=== PATIENT | male | born 1960 | race Caucasian/White ===

== ENCOUNTER 2017-07-12 19:57 | Inpatient (IN) | payer MEDICARE, OTHER ==
[~2017-07-12] VITALS: Ht 172.7 cm; Wt 91.2 kg
[~2017-07-12 19:57] MED LIST: ALBU90OI; ALBU90OI61 INH; AMIT25 PO; AMIT50 PO; AMLO10 PO; AMLO5 PO; ASPI81CH PO; ATOR40TA PO; AZIT500 PO; Aluminum H320 MG/5 M PO; BUME2 PO; CALACE667G PO; CARV6.25 PO; CINA30 PO; CLON.1 PO; CODGUAEL PO; CYCL10 PO; Calcium Acetat667 MG PO; Cyclobenzaprine5 MG PO; DELTASONE20 MG PO; FLUSAL1005 INH; GABA100 PO; GUAIFENESIN-DM S5 ML PO; HYDMOR2 PO; HYDR10 PO; HYDRA25 PO; Klonopin0.5 MG PO; LISI20 PO; LISI5 PO; MEDICAL MARIJUANA; METO100ER PO; MOTION RELIEF25 MG PO; Meribin5 MG PO; Norco 10-325 T1 EACH PO; OMEPRAZOLE MAGN20 MG PO; ONDA4ODT SL; PANT40 PO; Percocet 5-3251 EACH PO; TIOT18 INH; TIZANIDINE HCL4 MG PO; VELPHORO500 MG PO; Zofran Odt4 MG PO
[2017-07-12 20:50] LABS: BASOPHILS ABSOLUTE AUTO 0.02 K/mm3 (0.00-0.23); BASOPHILS PERCENT AUTO 1 % (0-2); EOSINOPHILS ABSOLUTE AUTO 0.07 K/mm3 (0.00-0.68); EOSINOPHILS PERCENT AUTO 2 % (0-6); Hematocrit 28.5 % (37.0-53.0); Hemoglobin 9.4 g/dL (13.5-17.5); IMMATURE GRAN ABSOLUTE AUTO 0.01 K/mm3 (0.00-0.10); IMMATURE GRAN PERCENT AUTO 0 % (0-1); LYMPHOCYTES ABSOLUTE AUTO 0.92 K/mm3 (0.84-5.20); LYMPHOCYTES PERCENT AUTO 26 % (21-46); MONOCYTES ABSOLUTE AUTO 0.34 K/mm3 (0.16-1.47); MONOCYTES PERCENT AUTO 10 % (4-13); Mean Corpuscular HGB 31.4 pg (26.0-34.0); Mean Corpuscular Volume 95 fL (80-100); Mean Platelet Volume 10.5 fL (9.1-12.4); NEUTROPHILS ABSOLUTE AUTO 2.19 K/mm3 (1.96-9.15); NEUTROPHILS PERCENT AUTO 62 % (41-73); Platelet Count 89 K/mm3 (150-400); RDW Standard Deviation 52.2 fL (35.1-46.3); Red Blood Cell Count 2.99 M/mm3 (4.30-5.90); White Blood Cell Count 3.55 K/mm3 (4.00-11.30)
[2017-07-12 21:11] LABS: Troponin I 0.064 ng/mL (0.000-0.040)
[2017-07-12 21:16] LABS: Albumin, Blood 3.4 g/dL (3.4-5.0); Albumin/Globulin Ratio 1.1 (0.8-1.8); Bilirubin, Total 0.6 mg/dL (0.1-1.0); Bun/Creatinine Ratio 5.8 (12.0-20.0); Calcium, Blood 7.7 mg/dL (8.5-10.1); Globulin, Blood 3.1 g/dL (2.2-4.0); Potassium, Blood 4.6 mmol/L (3.5-5.5); Total Protein, Blood 6.5 g/dL (6.4-8.2)
[2017-07-12 21:51] LABS: Influenza A Negative (NEGATIVE); Influenza B Positive (NEGATIVE)
[2017-07-13 05:15] LABS: BASOPHILS ABSOLUTE AUTO 0.02 K/mm3 (0.00-0.23); BASOPHILS PERCENT AUTO 1 % (0-2); EOSINOPHILS ABSOLUTE AUTO 0.07 K/mm3 (0.00-0.68); EOSINOPHILS PERCENT AUTO 2 % (0-6); Hematocrit 27.3 % (37.0-53.0); Hemoglobin 8.9 g/dL (13.5-17.5); IMMATURE GRAN ABSOLUTE AUTO 0.01 K/mm3 (0.00-0.10); IMMATURE GRAN PERCENT AUTO 0 % (0-1); LYMPHOCYTES ABSOLUTE AUTO 1.13 K/mm3 (0.84-5.20); LYMPHOCYTES PERCENT AUTO 31 % (21-46); MONOCYTES ABSOLUTE AUTO 0.35 K/mm3 (0.16-1.47); MONOCYTES PERCENT AUTO 10 % (4-13); Mean Corpuscular HGB 31.2 pg (26.0-34.0); Mean Corpuscular HGB Conc 32.6 g/dL (31.5-36.5); Mean Corpuscular Volume 96 fL (80-100); Mean Platelet Volume 9.9 fL (9.1-12.4); NEUTROPHILS PERCENT AUTO 57 % (41-73); Platelet Count 80 K/mm3 (150-400); RDW Standard Deviation 52.4 fL (35.1-46.3); Red Blood Cell Count 2.85 M/mm3 (4.30-5.90); White Blood Cell Count 3.68 K/mm3 (4.00-11.30)
[2017-07-13 05:52] LABS: Albumin, Blood 3.3 g/dL (3.4-5.0); Anion Gap 11 mmol/L (6-16); Blood Urea Nitrogen 63 mg/dL (8-24); CO2, Blood 33 mmol/L (21-32); Calcium, Blood 7.6 mg/dL (8.5-10.1); Chloride, Blood 93 mmol/L (98-108); Glucose, Blood 93 mg/dL (70-99); Phosphorus, Blood 7.8 mg/dL (2.5-4.9); Potassium, Blood 4.5 mmol/L (3.5-5.5); Sodium, Blood 137 mmol/L (136-145)
[2017-07-13 05:57] LABS: Bun/Creatinine Ratio 5.9 (12.0-20.0); Glomerular Filtration Rate 5 (60-)
[2017-07-14 05:23] LABS: BASOPHILS PERCENT AUTO 0 % (0-2); EOSINOPHILS PERCENT AUTO 0 % (0-6); Hematocrit 27.2 % (37.0-53.0); IMMATURE GRAN PERCENT AUTO 0 % (0-1); LYMPHOCYTES ABSOLUTE AUTO 0.49 K/mm3 (0.84-5.20); LYMPHOCYTES PERCENT AUTO 24 % (21-46); MONOCYTES ABSOLUTE AUTO 0.15 K/mm3 (0.16-1.47); MONOCYTES PERCENT AUTO 7 % (4-13); Mean Corpuscular HGB Conc 33.1 g/dL (31.5-36.5); Mean Corpuscular Volume 94 fL (80-100); Mean Platelet Volume 9.8 fL (9.1-12.4); NEUTROPHILS ABSOLUTE AUTO 1.39 K/mm3 (1.96-9.15); NEUTROPHILS PERCENT AUTO 69 % (41-73); Platelet Count 86 K/mm3 (150-400); RDW Coefficient Variation 14.6 % (11.7-14.2); RDW Standard Deviation 50.1 fL (35.1-46.3); White Blood Cell Count 2.03 K/mm3 (4.00-11.30)
[2017-07-14 05:47] LABS: Magnesium, Blood 2.3 mg/dL (1.6-2.4)
[2017-07-14 06:00] LABS: Albumin, Blood 3.2 g/dL (3.4-5.0); Anion Gap 11 mmol/L (6-16); Blood Urea Nitrogen 63 mg/dL (8-24); CO2, Blood 30 mmol/L (21-32); Calcium, Blood 7.9 mg/dL (8.5-10.1); Chloride, Blood 95 mmol/L (98-108); Glucose, Blood 163 mg/dL (70-99); Phosphorus, Blood 6.6 mg/dL (2.5-4.9); Potassium, Blood 4.7 mmol/L (3.5-5.5); Sodium, Blood 136 mmol/L (136-145)
[2017-07-14 06:03] LABS: Bun/Creatinine Ratio 6.6 (12.0-20.0); Creatinine, Blood 9.59 mg/dL (0.60-1.20); Glomerular Filtration Rate 6 (60-)
[2017-07-14] MEDS ORDERED: ACET325 PO (12:17)
[2017-07-14] MEDS ORDERED: LEVFLO250 PO (12:18)
[2017-07-14] MEDS ORDERED: PRED10 PO (12:19)
[2017-07-14] MEDS ORDERED: OSEL75CA PO (12:32)
[2017-07-15 07:23] LABS: HCV Non Reactive (NR)
[2018-01-30] MEDS ORDERED: Calcium Acetat667 MG PO (07:27)
[2018-01-30] MEDS ORDERED: LOSA25 PO (07:27)
[2018-05-26] MEDS ORDERED: TUMS200 MG PO (14:53)
== END 2017-07-14 12:56 | disposition home or self-care (01) | DRG 193 ==
LOC: ER 19:57 → MEDS 21:40 → ENPENDDIS 07-14 09:30 → MEDS 07-14 12:56
PROVIDERS: Emergency Medicine; Internal Medicine; Internal Medicine Nephrology; Physician Assistant
PROC: 5A1D70Z Performance of Urinary Filtration, Intermittent, Less than 6 Hours Per Day (ICD-10-PCS; principal; 2017-07-13)
PROC: 3E0234Z Introduction of Serum, Toxoid and Vaccine into Muscle, Percutaneous Approach (ICD-10-PCS; 2017-07-13)
DX: J10.1 Influenza due to other identified influenza virus with other respiratory manifestations (principal); N18.6 End stage renal disease; I13.2 Hypertensive heart and chronic kidney disease with heart failure and with stage 5 chronic kidney disease, or end stage renal disease; J44.0 Chronic obstructive pulmonary disease with (acute) lower respiratory infection; J44.1 Chronic obstructive pulmonary disease with (acute) exacerbation; I50.42 Chronic combined systolic (congestive) and diastolic (congestive) heart failure; J20.9 Acute bronchitis, unspecified; Z23 Encounter for immunization
CPT/HCPCS: 36415; 71046; 80053; 80069; 80074; 82150; 82947; 83036; 83605; 83690; 83735; 84484; 85025; 86706; 87040; 87804; 93005; 93010; 94640; 94667; 94760; 96365; 96374; 96375; 99284; 99285; J0456; J0696; J0881; J1644; J2405; J2930; J7030; J7050

== ENCOUNTER → 2017-08-05 | Outpatient (CLI) | payer MEDICARE, OTHER ==
[~2017-08-05] MED LIST changes: +ACET325 PO; +LEVFLO250 PO; +LOSA25 PO; +OSEL75CA PO; +PRED10 PO; +TUMS200 MG PO
[2017-08-05 11:08] LABS: CHOL/HDL RATIO 2.3; Cholesterol 149 mg/dL (50-200); HDL Cholesterol 64 mg/dL (>39); LDL/HDL RATIO 1.1; Low Density Lipoprotein Chol 72 mg/dL (0-110); Triglycerides 63 mg/dL (30-160); Very Low Density Lipoprot Chol 12 mg/dL (6-32)
== END | disposition home or self-care (01) ==
LOC: LAB 10:25
PROVIDERS: Internal Medicine Nephrology
DX: E78.00 Pure hypercholesterolemia, unspecified (principal)
CPT/HCPCS: 80061

== ENCOUNTER 2018-07-18 21:35 | Emergency (ER) | payer MEDICARE, BC ==
[~2018-07-18] VITALS: Ht 172.7 cm; Wt 89.4 kg
[2018-07-18 22:09] LABS: BASOPHILS ABSOLUTE AUTO 0.08 K/mm3 (0.00-0.23); BASOPHILS PERCENT AUTO 2 % (0-2); EOSINOPHILS PERCENT AUTO 6 % (0-6); Hematocrit 28.2 % (37.0-53.0); Hemoglobin 9.3 g/dL (13.5-17.5); IMMATURE GRAN ABSOLUTE AUTO 0.01 K/mm3 (0.00-0.10); IMMATURE GRAN PERCENT AUTO 0 % (0-1); LYMPHOCYTES ABSOLUTE AUTO 1.42 K/mm3 (0.84-5.20); LYMPHOCYTES PERCENT AUTO 29 % (21-46); MONOCYTES ABSOLUTE AUTO 0.45 K/mm3 (0.16-1.47); MONOCYTES PERCENT AUTO 9 % (4-13); Mean Corpuscular HGB 32.1 pg (26.0-34.0); Mean Corpuscular Volume 97 fL (80-100); Mean Platelet Volume 9.3 fL (9.1-12.4); NEUTROPHILS ABSOLUTE AUTO 2.73 K/mm3 (1.96-9.15); NEUTROPHILS PERCENT AUTO 55 % (41-73); Platelet Count 111 K/mm3 (150-400); RDW Coefficient Variation 15.2 % (11.7-14.2); RDW Standard Deviation 53.6 fL (35.1-46.3); White Blood Cell Count 4.99 K/mm3 (4.00-11.30)
[2018-07-18 22:33] LABS: Troponin I 0.03 ng/mL (0.000-0.040)
[2018-07-18 22:34] LABS: Albumin, Blood 3.6 g/dL (3.4-5.0); Albumin/Globulin Ratio 1.1 (0.8-1.8); Bilirubin, Total 0.5 mg/dL (0.1-1.0); Bun/Creatinine Ratio 5.8 (12.0-20.0); Calcium, Blood 9.2 mg/dL (8.5-10.1); Creatinine, Blood 8.89 mg/dL (0.60-1.20); Globulin, Blood 3.3 g/dL (2.2-4.0); Potassium, Blood 4.9 mmol/L (3.5-5.5); Total Protein, Blood 6.9 g/dL (6.4-8.2)
== END 2018-07-18 23:50 | disposition home or self-care (01) ==
LOC: ER 21:35
PROVIDERS: Emergency Medicine
DX: J40 Bronchitis, not specified as acute or chronic (principal); R60.9 Edema, unspecified; R20.2 Paresthesia of skin; I10 Essential (primary) hypertension; Z79.899 Other long term (current) drug therapy; E11.22 Type 2 diabetes mellitus with diabetic chronic kidney disease; I12.9 Hypertensive chronic kidney disease with stage 1 through stage 4 chronic kidney disease, or unspecified chronic kidney disease; N18.9 Chronic kidney disease, unspecified; G43.909 Migraine, unspecified, not intractable, without status migrainosus
CPT/HCPCS: 36415; 71046; 80053; 83880; 84484; 85025; 93005; 93010; 94640; 96374; 99285-25

== ENCOUNTER 2018-10-07 11:00 | Emergency (ER) | payer MEDICARE, BC ==
[~2018-10-07] VITALS: Ht 172.7 cm; Wt 90.7 kg
[~2018-10-07 11:00] MED LIST changes: -CARV6.25 PO; +Carvedilol12.5 MG PO; -GABA100 PO; +GABA300 PO
[2018-10-07 11:33] LABS: BASOPHILS ABSOLUTE AUTO 0.03 K/mm3 (0.00-0.23); BASOPHILS PERCENT AUTO 1 % (0-2); EOSINOPHILS ABSOLUTE AUTO 0.02 K/mm3 (0.00-0.68); EOSINOPHILS PERCENT AUTO 1 % (0-6); Hematocrit 30.3 % (37.0-53.0); Hemoglobin 9.7 g/dL (13.5-17.5); IMMATURE GRAN ABSOLUTE AUTO 0.01 K/mm3 (0.00-0.10); IMMATURE GRAN PERCENT AUTO 0 % (0-1); LYMPHOCYTES PERCENT AUTO 19 % (21-46); MONOCYTES PERCENT AUTO 16 % (4-13); Mean Corpuscular HGB 31.9 pg (26.0-34.0); Mean Corpuscular Volume 100 fL (80-100); Mean Platelet Volume 10.3 fL (9.1-12.4); NEUTROPHILS ABSOLUTE AUTO 2.02 K/mm3 (1.96-9.15); NEUTROPHILS PERCENT AUTO 64 % (41-73); Platelet Count 68 K/mm3 (150-400); RDW Coefficient Variation 14.7 % (11.7-14.2); RDW Standard Deviation 53.8 fL (35.1-46.3); Red Blood Cell Count 3.04 M/mm3 (4.30-5.90); White Blood Cell Count 3.18 K/mm3 (4.00-11.30)
[2018-10-07 11:51] LABS: Albumin, Blood 3.6 g/dL (3.4-5.0); Albumin/Globulin Ratio 1.1 (0.8-1.8); Bilirubin, Total 0.8 mg/dL (0.1-1.0); Bun/Creatinine Ratio 4.9 (12.0-20.0); Calcium, Blood 9.7 mg/dL (8.5-10.1); Creatinine, Blood 7.33 mg/dL (0.60-1.20); Globulin, Blood 3.2 g/dL (2.2-4.0); Potassium, Blood 4.7 mmol/L (3.5-5.5); Total Protein, Blood 6.8 g/dL (6.4-8.2)
[2018-10-07 13:40] LABS: Influenza A Negative (NEGATIVE); Influenza B Negative (NEGATIVE)
[2018-10-07] MEDS ORDERED: Norco 5-325 Ta1 EACH PO (15:11)
[2018-10-07] MEDS ORDERED: BUDE6HFA INH (15:36)
[2018-10-07] MEDS ORDERED: ALBU90OI6 INH (15:37)
== END 2018-10-07 15:43 | disposition home or self-care (01) ==
LOC: ER 11:00
PROVIDERS: Physician Assistant
DX: B34.9 Viral infection, unspecified (principal); R79.89 Other specified abnormal findings of blood chemistry; Z88.8 Allergy status to other drugs, medicaments and biological substances; Z79.899 Other long term (current) drug therapy; E11.22 Type 2 diabetes mellitus with diabetic chronic kidney disease; I12.9 Hypertensive chronic kidney disease with stage 1 through stage 4 chronic kidney disease, or unspecified chronic kidney disease; N18.9 Chronic kidney disease, unspecified; G43.909 Migraine, unspecified, not intractable, without status migrainosus; J44.9 Chronic obstructive pulmonary disease, unspecified
CPT/HCPCS: 36415; 71046; 80053; 84484; 85025; 87804; 93005; 93010; 94640; 96374; 96375; 99285-25; J2405; J3010

== ENCOUNTER 2018-12-20 09:37 | Emergency (ER) | payer MEDICARE, BC ==
[~2018-12-20] VITALS: Ht 172.7 cm; Wt 92.5 kg
[~2018-12-20 09:37] MED LIST changes: +ALBU90OI6 INH; +BUDE6HFA INH; +Norco 5-325 Ta1 EACH PO
[2018-12-20 11:15] LABS: BASOPHILS ABSOLUTE AUTO 0.09 K/mm3 (0.00-0.23); BASOPHILS PERCENT AUTO 1 % (0-2); EOSINOPHILS ABSOLUTE AUTO 0.81 K/mm3 (0.00-0.68); EOSINOPHILS PERCENT AUTO 9 % (0-6); Hematocrit 31.7 % (37.0-53.0); Hemoglobin 10.2 g/dL (13.5-17.5); IMMATURE GRAN ABSOLUTE AUTO 0.03 K/mm3 (0.00-0.10); IMMATURE GRAN PERCENT AUTO 0 % (0-1); LYMPHOCYTES ABSOLUTE AUTO 0.97 K/mm3 (0.84-5.20); LYMPHOCYTES PERCENT AUTO 11 % (21-46); MONOCYTES PERCENT AUTO 7 % (4-13); Mean Corpuscular HGB 30.8 pg (26.0-34.0); Mean Corpuscular HGB Conc 32.2 g/dL (31.5-36.5); Mean Corpuscular Volume 96 fL (80-100); Mean Platelet Volume 10.4 fL (9.1-12.4); NEUTROPHILS PERCENT AUTO 73 % (41-73); Platelet Count 117 K/mm3 (150-400); RDW Coefficient Variation 15.1 % (11.7-14.2); RDW Standard Deviation 51.8 fL (35.1-46.3); Red Blood Cell Count 3.31 M/mm3 (4.30-5.90)
[2018-12-20 11:45] LABS: Troponin I 0.04 ng/mL (0.000-0.040)
[2018-12-20 11:50] LABS: Albumin, Blood 3.3 g/dL (3.4-5.0); Albumin/Globulin Ratio 0.9 (0.8-1.8); Bilirubin, Total 0.6 mg/dL (0.1-1.0); Creatinine, Blood 9.64 mg/dL (0.60-1.20); Globulin, Blood 3.6 g/dL (2.2-4.0); Potassium, Blood 4.1 mmol/L (3.5-5.5); Total Protein, Blood 6.9 g/dL (6.4-8.2)
[2019-03-17] MEDS ORDERED: AMIT25 PO (14:00)
[2019-03-17] MEDS ORDERED: CLOP75 PO (14:01)
[2019-03-17] MEDS ORDERED: HYDRA25 PO (14:01)
== END 2018-12-20 13:38 | disposition home or self-care (01) ==
LOC: ER 09:37
PROVIDERS: Physician Assistant
DX: L03.311 Cellulitis of abdominal wall (principal); Z91.048 Other nonmedicinal substance allergy status; Z79.899 Other long term (current) drug therapy; I12.9 Hypertensive chronic kidney disease with stage 1 through stage 4 chronic kidney disease, or unspecified chronic kidney disease; N18.9 Chronic kidney disease, unspecified; E11.22 Type 2 diabetes mellitus with diabetic chronic kidney disease; G43.909 Migraine, unspecified, not intractable, without status migrainosus; F17.290 Nicotine dependence, other tobacco product, uncomplicated
CPT/HCPCS: 36415; 80053; 83880; 84484; 85025; 93005; 93010; 96365; 96366; 99283-25; J3370; J7050

== ENCOUNTER 2018-12-30 00:25 | Day surgery (SDC) | payer MEDICARE, BC ==
[2019-03-17] MEDS ORDERED: AMIT25 PO (14:00)
[2019-03-17] MEDS ORDERED: CLOP75 PO (14:01)
[2019-03-17] MEDS ORDERED: HYDRA25 PO (14:01)
== END 2018-12-30 15:46 | disposition home or self-care (01) ==
LOC: ATC 00:25
DX: I12.0 Hypertensive chronic kidney disease with stage 5 chronic kidney disease or end stage renal disease (principal); E11.22 Type 2 diabetes mellitus with diabetic chronic kidney disease; N18.6 End stage renal disease; D63.1 Anemia in chronic kidney disease
CPT/HCPCS: 36415; 36430; 86850; 86900; 86901; 86923; J7050; P9016

== ENCOUNTER 2019-03-18 09:00 | Day surgery (SDC) | payer MEDICARE, BC ==
[~2019-03-18] VITALS: Ht 170.2 cm; Wt 95.0 kg
[~2019-03-18 09:00] MED LIST changes: +CLOP75 PO
--- NOTE | 2019-03-18 11:14 | NUR ---
Pt with dialysis catheter left arm with good bruit and trill. Pt sleeping off and on.
--- NOTE | 2019-03-18 15:12 | NUR ---
Pt received from Chaz Christie RN. Pt awake cooperative. Pt flat with right tr-band on not advanced. Right groin site wnl. Iv h.l. infused 100 ml from liaison inspection laboratory assistant. Pt in good spirits. vss, medications ordered and given. Report to Makeda MEYERS. Pt with back pain rx ordered awaiting medication.
--- NOTE | 2019-03-18 15:35 | NUR ---
PER DR ORDERS, PT GIVEN NORCO 5/325MG PO FOR BACK PAIN. TOLERATES WELL. VSS. PT EATING LUNCH AT THIS TIME. R FEM SITE REMAINS CLEAR.
--- NOTE | 2019-03-18 16:35 | NUR ---
ASSUMED CARE OF PT. PT REPORTS BACK DISCOMFORT 01/12, ACHEY IN CHARACTER WHICH IS CHRNOIC, RECEIVED 1 NORC0 5/325MG WITH NO RELIEF; ADMINISTEREED ADDITIONAL NORCO 5/325MG. PT DENIES SOB OR NAUSEA. MONITOR SR 60'S, B/P 174/75, SPO2 97% RA. R FEMORAL SITE, NO SWELLING/HEMATOMA, TEGADERM DRSG INTACT. PT HAS 2+ BLE PULSES BILATERALLY. R RADIAL ATTEMPT SITE, NO SWELLING/HEMATOMA, TR BAND IN PLACE-2 CC AIR REMOVED, SITE UNCHANGED. PT TAKING FOOD AND FLUIDS WITHOUT PROBLEM.
--- NOTE | 2019-03-18 17:15 | NUR ---
PT REPORTS GOOD RELIEF AFTER NORCO, BACK PAIN REDUCED TO 4/10. PT WAS SBA UP TO CHAIR, TOLERATED ACTIVITY WELL; SITE UNCHANGED AFTER ACTIVITY. DR FRAZIER HERE TO EVALUATE PT.
--- NOTE | 2019-03-18 17:55 | NUR ---
PT DRESSED SELF WITH MINIMAL ASSISTANCE. PT RECEIVED DISCHARGE INSTRUCTIONS, MED LIST AND SUPPLEMENTAL RESOURCES; VERBALIZED GOOD UNDERSTANDING. PT'S R RADIAL SITE WITHOUT SWELLING, TR BAND REMOVED, CLOTH DOT PLACED AND ARM BOARD. PT'S R GROING SITE REMAINS WITHOUT SWELLING/HEMATOMA, DRSG INTACT. PT'S IV REMOVED, CANNULA INTACT.
--- NOTE | 2019-03-18 18:06 | NUR ---
PT LEFT FACILITY VIA W/C WITH FRIEND, CONDTION STABLE.
[2019-03-20] MEDS ORDERED: Ropinirole HCl0.5 MG (11:37)
[2019-03-20] MEDS ORDERED: Monodox100 MG PO (11:55)
== END 2019-03-20 18:06 | disposition home or self-care (01) ==
LOC: MHTC 09:00
DX: E11.51 Type 2 diabetes mellitus with diabetic peripheral angiopathy without gangrene (principal); I70.213 Atherosclerosis of native arteries of extremities with intermittent claudication, bilateral legs; I12.0 Hypertensive chronic kidney disease with stage 5 chronic kidney disease or end stage renal disease; E11.22 Type 2 diabetes mellitus with diabetic chronic kidney disease; N18.6 End stage renal disease; I42.0 Dilated cardiomyopathy; J44.9 Chronic obstructive pulmonary disease, unspecified; Z99.2 Dependence on renal dialysis; Z86.73 Personal history of transient ischemic attack (TIA), and cerebral infarction without residual deficits; Z79.899 Other long term (current) drug therapy; Z79.02 Long term (current) use of antithrombotics/antiplatelets; Z88.5 Allergy status to narcotic agent
CPT/HCPCS: 36140; 36247; 75630; 75716; 75774; 76937; 99152; 99153; A9270-GY; C1769; C1887; C1894; J0360; J1644; J2250; J3010; J7030; Q9967

== ENCOUNTER 2019-03-20 11:16 | Emergency (ER) | payer MEDICARE, BC ==
[~2019-03-20] VITALS: Ht 170.2 cm; Wt 92.1 kg
[2019-03-20] MEDS ORDERED: Ropinirole HCl0.5 MG (11:37)
[2019-03-20] MEDS ORDERED: Monodox100 MG PO (11:55)
== END 2019-03-20 11:59 | disposition home or self-care (01) ==
LOC: ER 11:16
DX: L03.811 Cellulitis of head [any part, except face] (principal); I12.9 Hypertensive chronic kidney disease with stage 1 through stage 4 chronic kidney disease, or unspecified chronic kidney disease; E11.22 Type 2 diabetes mellitus with diabetic chronic kidney disease; N18.9 Chronic kidney disease, unspecified; J44.9 Chronic obstructive pulmonary disease, unspecified; G43.909 Migraine, unspecified, not intractable, without status migrainosus; Z88.5 Allergy status to narcotic agent; Z79.899 Other long term (current) drug therapy; Z79.02 Long term (current) use of antithrombotics/antiplatelets
CPT/HCPCS: 99281

== ENCOUNTER 2019-04-26 22:51 | Emergency (ER) | payer MEDICARE, BC ==
[~2019-04-26] VITALS: Ht 170.2 cm; Wt 95.7 kg
[~2019-04-26 22:51] MED LIST changes: +Monodox100 MG PO; +Ropinirole HCl0.5 MG
== END 2019-04-26 23:46 | disposition home or self-care (01) ==
LOC: ER 22:51
DX: L76.22 Postprocedural hemorrhage of skin and subcutaneous tissue following other procedure (principal); Z88.5 Allergy status to narcotic agent; Z79.899 Other long term (current) drug therapy; E11.22 Type 2 diabetes mellitus with diabetic chronic kidney disease; I12.9 Hypertensive chronic kidney disease with stage 1 through stage 4 chronic kidney disease, or unspecified chronic kidney disease; N18.9 Chronic kidney disease, unspecified; G43.909 Migraine, unspecified, not intractable, without status migrainosus; F17.290 Nicotine dependence, other tobacco product, uncomplicated
CPT/HCPCS: 12011; 99283-25

== ENCOUNTER 2019-05-04 12:48 | Emergency (ER) | payer MEDICARE, BC ==
[~2019-05-04] VITALS: Ht 170.2 cm; Wt 93.4 kg
== END 2019-05-04 14:35 | disposition home or self-care (01) ==
LOC: ER 12:48
DX: L02.212 Cutaneous abscess of back [any part, except buttock and flank] (principal); Z88.5 Allergy status to narcotic agent; Z79.899 Other long term (current) drug therapy; E11.22 Type 2 diabetes mellitus with diabetic chronic kidney disease; I12.9 Hypertensive chronic kidney disease with stage 1 through stage 4 chronic kidney disease, or unspecified chronic kidney disease; N18.9 Chronic kidney disease, unspecified; G43.909 Migraine, unspecified, not intractable, without status migrainosus; J44.9 Chronic obstructive pulmonary disease, unspecified
CPT/HCPCS: 10061; 99283-25

== ENCOUNTER 2019-05-22 08:56 | Inpatient (IN) | payer MEDICARE, BC ==
[~2019-05-22] VITALS: Ht 172.7 cm; Wt 95.5 kg
[~2019-05-22 08:56] MED LIST changes: -Ropinirole HCl0.5 MG; +Ropinirole HCl0.5 MG PO
[2019-05-22 09:53] LABS: BASOPHILS ABSOLUTE AUTO 0.17 K/mm3 (0.00-0.23); BASOPHILS PERCENT AUTO 2 % (0-2); EOSINOPHILS ABSOLUTE AUTO 0.38 K/mm3 (0.00-0.68); EOSINOPHILS PERCENT AUTO 4 % (0-6); Hematocrit 22.4 % (37.0-53.0); Hemoglobin 7.1 g/dL (13.5-17.5); IMMATURE GRAN ABSOLUTE AUTO 0.04 K/mm3 (0.00-0.10); IMMATURE GRAN PERCENT AUTO 0 % (0-1); LYMPHOCYTES ABSOLUTE AUTO 1.54 K/mm3 (0.84-5.20); LYMPHOCYTES PERCENT AUTO 17 % (21-46); MONOCYTES ABSOLUTE AUTO 0.41 K/mm3 (0.16-1.47); MONOCYTES PERCENT AUTO 5 % (4-13); Mean Corpuscular HGB 31.3 pg (26.0-34.0); Mean Corpuscular HGB Conc 31.7 g/dL (31.5-36.5); Mean Corpuscular Volume 99 fL (80-100); Mean Platelet Volume 10.3 fL (9.1-12.4); NEUTROPHILS ABSOLUTE AUTO 6.43 K/mm3 (1.96-9.15); NEUTROPHILS PERCENT AUTO 72 % (41-73); Platelet Count 145 K/mm3 (150-400); RDW Coefficient Variation 15.9 % (11.7-14.2); RDW Standard Deviation 55.7 fL (35.1-46.3); Red Blood Cell Count 2.27 M/mm3 (4.30-5.90); White Blood Cell Count 8.97 K/mm3 (4.00-11.30)
[2019-05-22 10:06] LABS: International Normalized Ratio 1.19; Prothrombin Time Results 12.4 Sec (9.7-11.5)
[2019-05-22 10:09] LABS: Albumin, Blood 2.5 g/dL (3.4-5.0); Albumin/Globulin Ratio 0.9 (0.8-1.8); Bilirubin, Total 0.5 mg/dL (0.1-1.0); Bun/Creatinine Ratio 6.8 (12.0-20.0); Calcium, Blood 8.6 mg/dL (8.5-10.1); Creatinine, Blood 7.52 mg/dL (0.60-1.20); Globulin, Blood 2.7 g/dL (2.2-4.0); Potassium, Blood 5.6 mmol/L (3.5-5.5); Total Protein, Blood 5.2 g/dL (6.4-8.2)
[2019-05-22] MEDS ORDERED: HYDRA25 PO (10:13)
[2019-05-22] MEDS ORDERED: BUDE6HFA INH (10:17)
[2019-05-22] MEDS ORDERED: Ventolin/Prove6.7 GM INH (10:18)
[2019-05-22] MEDS ORDERED: FERRIC CITRATE210 MG PO (12:36)
[2019-05-22] MEDS ORDERED: HYDHCL25 PO (12:39)
--- NOTE | 2019-05-22 13:14 | NUR ---
PT AND DAUGHTER ORIENTED TO ROOM AND EXPLAINED FREQUENT ROUNDING. BED LOW AND IN LOCKED POSITION CALL LIGHT WITHIN REACH. PT AWAKE ALERT WITH C/O POSSIBLE INGROWN RIGHT GREAT TOENAIL. ASSISTED TO HOSPITAL BED WITH 3 PEOPLE FROM ER STRETCHER.
[2019-05-22 15:44] LABS: Hematocrit 21.1 % (37.0-53.0); Hemoglobin 7.1 g/dL (13.5-17.5)
--- NOTE | 2019-05-22 15:50 | NUR ---
SEVERAL EPISODES OF DARK RED BLOOD FROM RECTUM DURING DIALYSIS REPORTED TO DR. BAUER. PCU TRANSFER ORDERS AND OTHER NEW ORDERS RECEIVED.
--- NOTE | 2019-05-22 16:08 | NUR ---
PT WITH SEVERAL EPISODES OF DARK RED BLOOD FROM RECTUM IN LARGE AMOUNTS REPORTED TO DR. DELCID. PREPARING PT FOR PCU TRANSFER.
--- NOTE | 2019-05-22 16:17 | NUR ---
TRANSFER OF CARE GIVEN TO PCU,RN. WILMA Julien AND GÉNESIS Durant TRANSFERRING PT VIA HOSPITAL BED AT THIS TIME ACCOMPANIED BY NICOLASA Julien
--- NOTE | 2019-05-22 16:33 | NUR ---
REPORT RECEIVED FROM BRANDEN, YVES. DR DELCID MET PT IN [facility] AND RECOMMENDS ICU TRANSFER. REPORT GIVEN TO JORGE RNS. MED NURSE'S NAME GIVEN FOR FURTHER INFO.
--- NOTE | 2019-05-22 17:48 | NUR ---
CARE ASSUMED AT 1640, PT TO ICU 10, ALERT AND ORIENTED X4, APPROPRIATE AND COOPERATIVE. SKIN PALE AND COOL, BP WNL AT THIS TIME, HR 70'S SINUS WITH ST DEPRESSION NOTED. ASSESSMENT COMPLETED, PT DENIES CP/PRESSURE, DENIES ABD DISCOMFORT. DIALYSIS NURSE AT BEDSIDE, 1 UNIT PRBC'S INFUSED BY MEDICAID BILLING SPECIALIST WITHOUT DIFFUCULTY, VSS T/O. TAP WATER ENEMA X1 WITH SMALL RESULT OF JEFFRY LIQUID OTUPUT. CATHERINE DELCID AND ELAYNE AT BEDSIDE FOR SCOPE, MARKED ST DEPRESSION NOW NOTED ON MINUTE CLERK, EKG OBTAINED. DR. ALVAREZ CONSULTED BY DR. DELCID, DR. DELCID ALSO SPOKE WITH DR. BAUER FOR UPDATE. PT NOW REPORTING INTERMITTENT RIGHT SIDED CHEST PAIN, DENIES CP AT THIS TIME, STATES SOB IS MINIMAL AND AT BASELINE. MAP > 60, HR 70'S, WILL CONTINUE TO MONITOR.
--- NOTE | 2019-05-22 18:07 | NUR ---
DIALYSIS TOOK MY MACHINE UP TO ROOM 363 AND CONNECTED PT TO DIALYSIS AT 1457. HE C/O NEEDING TO GO TO THE . AMORTIZATION SCHEDULE CLERK AND I PLACED A BEDPAN UNDER HIM. HE HAD APPROX. 600ML OF MAROON COLORED BLOOD. WHEN WE REMOVED IT HE SAID HE WAS GOING AGAIN. A CHUX WAS SCOOTED UNDER HIM. WHEN WE TRIED TO REMOVE THE CHUX HE STARTED GOING AGAIN. WE USED 3-5 CHUXS. APPROX. 2-3 LITER, THE FLOOR RN CALLED THE DR ABOUT MOVING HIM TO ICU AND GETTING A SCOPE DONE. THE PT BP DROPPED TO 60 WHEN I FIRST CONNECTED HIM,I TOOK AGAIN GOT 80. WE GAVE 1 LITER OF NS. THE FLOOR NURSE WAS GIVING A UNIT OF BLOOD. I RETURNED HIS BLOOD AND SECURED THE NEEDLES. HE WAS MOVED TO ICU WHERE I RECONNECTED HIM AND GAVE HIM A UNIT OF PRBC. THEN DC'ED THE TX. THE STAFF WAS THERE TO DO A SCOPE. REMOVED NEEDLES PER PROTOCAL. PRBC. THEN DC'ED TX AND
--- NOTE | 2019-05-22 18:25 | NUR ---
05/22/19 182 Antonieta De Paz MAC CASE IN ICU [address] HOLLY. SEE ANETHESIA RECORD FOR CARE
[2019-05-22 18:40] LABS: Hematocrit 25.4 % (37.0-53.0); Hemoglobin 8.4 g/dL (13.5-17.5)
--- NOTE | 2019-05-22 18:40 | NUR ---
PT CONSULTED BY DR. ALVAREZ, NEW ORDERS RECEIVED. EGD CREW AT BEDSIDE FOR LOWER ENDOSCOPY AT THIS TIME. PT HYPOTENSIVE, MAP 79 HR 80. REPORT TO ONCOMING SHIFT.
[2019-05-22 19:56] LABS: Hematocrit 24.2 % (37.0-53.0)
--- NOTE | 2019-05-22 21:47 | NUR ---
ASSUMED CARE OF PT, REPORT RCV'D FROM LUIGI LONGORIA. DR. DELCID AT BEDSIDE, COLONOSCOPY PERFORMED. PER DR. DELCID NO SIGN OF ACTIVE BLEEDING, WILL SCOPE TOMORROW AFTERNOON FOLLOWING PREP. PT AND FAMILY UPDATED. PT DROWSY BUT AROUSABLE. PT DENIES CHEST OR ABDOMINAL PAIN, REPORTS 5/10 PAIN IN LEFT BIG TOE D/T INGROWN TOENAIL-PODIATRY CONSULTED. PT REPORTS SOB AT BASELINE BUT CURRENLTLY DENIES. SATS MID 90'S ON RA. NS @ 50ML/HR INFUSING IN RAC. SEE FULL SHIFT ASSESSMENT.
--- NOTE | 2019-05-22 23:52 | NUR ---
DR. FUENTES AT BEDSIDE, UPDATED ON PT STATUS. PLAN FOR DIALYSIS TOMORROW.
[2019-05-23 02:09] LABS: BASOPHILS ABSOLUTE AUTO 0.15 K/mm3 (0.00-0.23); BASOPHILS PERCENT AUTO 2 % (0-2); EOSINOPHILS ABSOLUTE AUTO 0.32 K/mm3 (0.00-0.68); EOSINOPHILS PERCENT AUTO 4 % (0-6); Hematocrit 21.4 % (37.0-53.0); IMMATURE GRAN ABSOLUTE AUTO 0.03 K/mm3 (0.00-0.10); IMMATURE GRAN PERCENT AUTO 0 % (0-1); LYMPHOCYTES ABSOLUTE AUTO 1.96 K/mm3 (0.84-5.20); LYMPHOCYTES PERCENT AUTO 24 % (21-46); MONOCYTES PERCENT AUTO 7 % (4-13); Mean Corpuscular HGB 30.6 pg (26.0-34.0); Mean Corpuscular HGB Conc 32.7 g/dL (31.5-36.5); Mean Platelet Volume 9.8 fL (9.1-12.4); NEUTROPHILS ABSOLUTE AUTO 5.26 K/mm3 (1.96-9.15); NEUTROPHILS PERCENT AUTO 63 % (41-73); Platelet Count 101 K/mm3 (150-400); RDW Coefficient Variation 17.9 % (11.7-14.2); RDW Standard Deviation 58.2 fL (35.1-46.3); Red Blood Cell Count 2.29 M/mm3 (4.30-5.90); White Blood Cell Count 8.32 K/mm3 (4.00-11.30)
[2019-05-23 02:13] LABS: Mean Corpuscular Volume 93 fL (80-100)
[2019-05-23 02:27] LABS: Anion Gap 5 mmol/L (6-16); Blood Urea Nitrogen 50 mg/dL (8-24); Bun/Creatinine Ratio 7.7 (12.0-20.0); CO2, Blood 34 mmol/L (21-32); Calcium, Blood 7.6 mg/dL (8.5-10.1); Chloride, Blood 100 mmol/L (98-108); Creatinine, Blood 6.48 mg/dL (0.60-1.20); Glomerular Filtration Rate 9 (60-); Glucose, Blood 127 mg/dL (70-99); Magnesium, Blood 1.7 mg/dL (1.6-2.4); Phosphorus, Blood 5.6 mg/dL (2.5-4.9); Potassium, Blood 4.3 mmol/L (3.5-5.5); Sodium, Blood 139 mmol/L (136-145)
--- NOTE | 2019-05-23 06:09 | NUR ---
SHIFT SUMMARY NO ACUTE CHANGES OVERNIGHT. PT WAS ABLE TO AMBULATE FROM BED TO CHAIR AND BACK TO BED WITH ASSISTANCE. PT CONTINUES TO DENY ABDOMEN OR CHEST PAIN AT THIS TIME, PT'S ONLY COMPLAINT OF PAIN IS RIGHT BIG TOE. PT DID NOT HAVE ANY INCIDENCE OF BLOODY STOOL THIS SHIFT. HGB 7.0 THIS AM, TRANSFUSED 1 UNIT PRBC PER ORDER. PT EXPERIENCED OCCASIONAL BOUTS OF HYPOTENSION. PT TO BEGIN BOWEL PREP THIS MORNING, WILL CALL DEPUTY SHERIFF K9 HANDLER TO ENCOURAGE EARLY ECHO PRIOR TO BOWEL PREP. WILL REPORT TO DAYSHIFT NURSE.
[2019-05-23 08:23] LABS: Hematocrit 22.5 % (37.0-53.0); Hemoglobin 7.4 g/dL (13.5-17.5)
--- NOTE | 2019-05-23 09:03 | NUR ---
Echocardiogram completed
--- NOTE | 2019-05-23 09:59 | NUR ---
Patient gave permission for this student nurse to deliver care.
--- NOTE | 2019-05-23 10:04 | NUR ---
0830 PT BEGAN SMALL KATHY STOOL DOLLAR SIZE TIMES 2 AND THEN HAD LARGER STOOL OF 50ML. VSS AND AM MEDS HELD NOTED. PT DENIES PAIN OR DISTRESS OTHER THAN STOOLING ISSUES. NS AT 50ML INFUSING VIA R AC AND WILL D/C R HAND IV. P.G. IV PLACED FOR SECURE ACCESS NOTE AT THIS TIME.
--- NOTE | 2019-05-23 10:40 | NUR ---
PT CONT. TO FREQUENTLY TOOL KATHY STOOL WITH CLOTS. BP SL LOW AND WILL OBTAIN PRBC ORDERED. PT IS YET ASYMTOMATIC AND WILL FOLLOW.
--- NOTE | 2019-05-23 11:52 | NUR ---
PT JUST REMOVED FROM BED DIXON AND NO STOOLING NOTED AT THIS TIME. VS NOTED WITH PRBC INFUSING AND PT CONT WITH GOLYTELY AND NEARING 2000ML GOAL AND DOSE. WILL CONT TO FOLLOW.
--- NOTE | 2019-05-23 14:03 | NUR ---
PER DR BURT REQUEST... PT WILL FINISH ALL OF GOLYTELY.
[2019-05-23 15:33] LABS: Hematocrit 21.2 % (37.0-53.0); Hemoglobin 7.1 g/dL (13.5-17.5)
--- NOTE | 2019-05-23 15:51 | NUR ---
05/23/19 1551 POONAM MEDELLIN History, Chart, Medications and Allergies reviewed before start of procedure.MONITOR INTACT WITH CONTINUOUS PULSE OXIMETRY AND INTERMITTENT BP.3-LEAD EKG REVIEWED WITH PHYSICIAN PRIOR TO START OF PROCEDURE.O2 VIA N/C INTACT THROUGHOUT SEDATION/PROCEDURE. See Anesthesia record.
--- NOTE | 2019-05-23 18:01 | NUR ---
DIALYSIS TALKED TO DR FUENTES ABOUT PROCEDURE WITH CONTRAST BEING DONE TONIGHT. HE SAID THAT THE PT COULD WAIT UNTIL TOMORROW TO GET DIALYSIS.
--- NOTE | 2019-05-23 18:27 | NUR ---
1700 COLONOSCOPY COMPLETED AND PT BP SL SOFT NOTED. DR JIMENEZ REQUESTED AND DR DELCID ORDERED CTA TO FOLLOW. PT RESP STATUS STABLE WITH SECOND UNIT INFUSING AND H/H ORDERED TO FOLLOW AND CALL TO DR DELCID. PT IS C/O NUMBNESS OF LOWER EXTREMETIES AND FEELING BETTER WITH MOVEMENT AND ARE NOTED TO BE COOL. VS ARE INCREASING OVER TIME WITH RECOVERY.
--- NOTE | 2019-05-23 18:34 | NUR ---
[address] VIA BED AND BP ADIQUATE AND NOTED. BLOOD CONT TO INFUSE AND WILL F/U WITH H/H ORDERED. PT IS A/O AND SETTING UP IN BED W/O SOB OR DISTRESS. PT CONT TO NOTE NUMBNESS OF FEET. NS CONT AT 50ML AND BLOOD IN INFUSING AND WILL FOLLOW.
--- NOTE | 2019-05-23 18:39 | NUR ---
PT BP IS GOOD NOTED. PT RESTING AND REQUESTING HOB ELEVATED FOR COMFORT. PT DENIES ANY PAIN OR OTHER DISTRESS. DR JIMENEZ IS EXPECTED LATED THIS EVENING WITH F/U TO CTA THAT WAS DONE. ONE UNIT READY SLIP REMAINS AVALIBLE.
[2019-05-23 19:37] LABS: Hematocrit 23.2 % (37.0-53.0); Hemoglobin 7.5 g/dL (13.5-17.5)
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
[2019-05-24 00:04] LABS: Hematocrit 18.7 % (37.0-53.0); Hemoglobin 6.2 g/dL (13.5-17.5)
[2019-05-24 03:21] LABS: Hemoglobin 6.9 g/dL (13.5-17.5)
[2019-05-24 03:36] LABS: Magnesium, Blood 1.7 mg/dL (1.6-2.4)
[2019-05-24 03:37] LABS: Albumin, Blood 1.8 g/dL (3.4-5.0); Anion Gap 8 mmol/L (6-16); Blood Urea Nitrogen 58 mg/dL (8-24); Bun/Creatinine Ratio 7.5 (12.0-20.0); CO2, Blood 28 mmol/L (21-32); Calcium, Blood 7.2 mg/dL (8.5-10.1); Chloride, Blood 103 mmol/L (98-108); Creatinine, Blood 7.73 mg/dL (0.60-1.20); Glomerular Filtration Rate 8 (60-); Glucose, Blood 120 mg/dL (70-99); Phosphorus, Blood 6.8 mg/dL (2.5-4.9); Potassium, Blood 5.2 mmol/L (3.5-5.5); Sodium, Blood 139 mmol/L (136-145)
--- NOTE | 2019-05-24 03:39 | NUR ---
PT PRIMARY RN CONCERNED THAT PT HAD BECOME HYPOTENSIVE, SBP 80'S & MAP 40'S. PT ALSO NAUSEATED & CO CHEST PRESSURE "I JUST DON'T FEEL WELL". PT HAD REC'D 1 UNIT PRBC FOR HGB 6.2, WITH IMPROVEMENT TO 6.9. TROPONIN ALSO CONT TO INCREASE & EKG W WORSENING ST DEPRESSIONS. PT STATUS REVIEWED W DR NINO WHO CONFIRMS PLAN TO TRANSFUSE 1 UNIT PRBC. NO OTHER ORDERS AT THIS TIME.
[2019-05-24 06:26] LABS: Hematocrit 23.4 % (37.0-53.0); Hemoglobin 7.8 g/dL (13.5-17.5)
--- NOTE | 2019-05-24 06:29 | NUR ---
SHIFT SUMMARY PT CONTINUES TO HAVE INTERMITTENT HYPOTENSION. SECOND UNIT OF PRBC INFUSION COMPLETED AT 0545, FOLLOW UP H/H SENT TO LAB PENDING RESULTS. PT HAD ONE EPISODE "HEAVY" RIGHT UPPER CHEST PAIN THAT PT ATTRIBUTED TO NAUSEA. NO VOMITING OR BLOODY STOOL THIS SHIFT. PT'S TROPONINS TRENDING UPWARD, MOST RECENT 2.42-REPAIRER HANDTOOLS AWARE. WORSENING ST DEPRESSION NOTICED, EKG PERFORMED. DR. NINO NOTIFIED OF HYPOTENSION, CHEST PAIN AND NAUSEA-ORDER TO CONTINUE MONITORING H/H AND TRANSFUSING PER DR. DELCID'S PARAMETERS PT IS NOT CANDIDATE FOR CARDIAC INTERVENTION AT THIS TIME. PLEASE SEE PREVIOUS NOTES FROM THIS SHIFT, WILL REPORT TO DAYSHIFT NURSE.
--- NOTE | 2019-05-24 08:01 | NUR ---
ASSESSMENT- PT AWAKE, ALERT, COOPERATIVE, TALKATIVE. VOICING ANXIETY REGARDING HEALTH, EMOTIONAL SUPPORT GIVEN. NSR WITH ST DEPRESSION-DR. ALVAREZ HERE-ASSESSED EKG, UPDATED. LUNGS WITH FEW WHEEZES, STATES BREATHING "OKAY" NOW. SBP 90'S. COLOR PALE, SKIN W/D. NS TKO VIA POWER GLIDE AFSHAN, PROTONIX GTT AT 10 CC/HR. NO N/V. ABDOMEN SOFT WITH BOWEL SOUNDS. C/O DISCOMFORT RIGHT GREAT TOE, NO REDNESS. STATES PAIN RX LAST NIGHT DID HELP, DENIES NEED FOR PAIN RX NOW. CALLED DR. FUENTES-ORDERS TO RECEIVE ONE UNIT PC NOW AND ONE WITH DIALYSIS AT 1300 TODAY.
--- NOTE | 2019-05-24 08:59 | NUR ---
DR. BAUER, DR. JIMENEZ HERE. PLANS THAT IF PT ACTIVELY BLEEDING TO TAKE TO SPECIALS PROCEDURE. CONSENT SIGNED. VSS. BLOOD INFUSING NO S/S REACTION.
--- NOTE | 2019-05-24 10:07 | NUR ---
PT UNCOMFORTABLE, RESTLESS IN BED. BLOOD INFUSION DECREASED TO 125 CC/HR, ASSISTED TO REPOSITION AND PAIN RX GIVEN
--- NOTE | 2019-05-24 12:00 | NUR ---
BLOOD INFUSED WITHOUT ANY S/S REACTION. SBP REMAINS 90-100'S. HEARTRATE 80'S. UNCOMFORTABLE IN BED, ASSISTED FREQUENTLY TO REPOSITION. NPO. STATES DID HAVE SOME SOB BUT RESOLVED AFTER PAIN RX
--- NOTE | 2019-05-24 13:46 | NUR ---
DIALYSIS STARTED BY LITZY MEYERS. 2ND UNIT BLOOD CHECKED/VERIFIED. PT AWAKE, ALERT.
--- NOTE | 2019-05-24 15:18 | NUR ---
DIALYSIS CONTINUES. PT AWAKE, ALERT. STATES HARD TO REST IN BED. VSS. SECOND UNIT BLOOD TRANSFUSED. PLAN FOR SCOPE AFTER DIALYSIS.
[2019-05-24 15:51] LABS: Hematocrit 32.9 % (37.0-53.0); Hemoglobin 11.4 g/dL (13.5-17.5)
--- NOTE | 2019-05-24 15:58 | NUR ---
05/24/19 1558 Toby Holbrook History, Chart, Medications and Allergies reviewed before start of procedure.Patient confirms NPO status and agrees with scheduled PROCEDURE .Procedure Done in Patient Room MONITOR INTACT WITH CONTINUOUS PULSE OXIMETRY AND INTERMITTENT BP. 3-LEAD EKG REVIEWED WITH PHYSICIAN PRIOR TO START OF PROCEDURE. Bite Block Placed
--- NOTE | 2019-05-24 16:09 | NUR ---
DIALYSIS COMPLETE. PT AWAKE, ALERT. PREPARING FOR ENDOSCOPE. DR. DELCID HERE-UPDATED
--- NOTE | 2019-05-24 16:50 | NUR ---
GASTROSCOPY DONE WITH ANESTHESIA. PHYSICIANS AWARE OF UPDATED LABS. DUODENAL ULCER CLIPPED. PT AWAKE NOW, STATES FEELING BETTER, TALKING ON PHONE. NSR, BP IMPROVED. CONTINUE PROTONIX GTT FOR [address] DELCID. RIGHT AC AND AFSHAN MIDLINE DI.
--- NOTE | 2019-05-24 17:54 | NUR ---
NOTIFIED DR. JIMENEZ OF EGD WITH CLIPPED DUODENAL ULCER. ORDERS TO CALL IF PT REBLEEDS. PT STABLE NOW, NO S/S BLEEDING, BP IMPROVED, TAKING SMALL SIPS CLEAR LIQUIDS. NS TKO, PROTONIX GTT AT 10 CC/HR
--- NOTE | 2019-05-24 18:56 | NUR ---
VSS. CONTINUE TO MONITOR. STATES FEELS BETTER AFTER PAIN RX
--- NOTE | 2019-05-24 20:28 | NUR ---
INITIAL ASSESSMENT: PT A&O. IS ABLE TO MOVE SELF IN BED HOWEVER IS A 1XASSIST. LUNG SOUNDS ARE WHEEZY IN UPPER AND DIM IN BASES. SPO2 >90% ON RA. IN SR WITH ST DEPRESSION, HR IN THE 80S, SBP IN THE 120S. PITTING EDEMA BLE. PT REPORTS HE HAS NOT VOIDED SINCE YESTERDAY AND LAST BM 05/23. BT HYPOACTIVE. PT HAS A L ARM FISTULA AND 18G IV IN RAC AND POWERGLIDE AFSHAN. NS AND PROTONIX AT 10 MLS/HR.
[2019-05-25 02:43] LABS: Hematocrit 30.4 % (37.0-53.0); Hemoglobin 10.1 g/dL (13.5-17.5)
[2019-05-25 02:59] LABS: Magnesium, Blood 1.6 mg/dL (1.6-2.4)
[2019-05-25 03:00] LABS: Albumin, Blood 2.2 g/dL (3.4-5.0); Albumin/Globulin Ratio 0.9 (0.8-1.8); Bilirubin, Total 0.6 mg/dL (0.1-1.0); Bun/Creatinine Ratio 5.9 (12.0-20.0); Calcium, Blood 7.5 mg/dL (8.5-10.1); Creatinine, Blood 6.62 mg/dL (0.60-1.20); Globulin, Blood 2.5 g/dL (2.2-4.0); Phosphorus, Blood 5.8 mg/dL (2.5-4.9); Potassium, Blood 4.6 mmol/L (3.5-5.5); Total Protein, Blood 4.7 g/dL (6.4-8.2)
--- NOTE | 2019-05-25 06:14 | NUR ---
SHIFT SUMMARY: PT A&0. MAIN COMPLAINT THIS SHIFT HAS BEEN L GREATER TOE PAIN-PT REPORTS INGROWN TOE. WHEEZES IN UPPER LOBES, DIM IN BASES. HAS EXPERIENCED SOME EPISODES OF SOB. SPO2 GREATER THAN 90% ON 2L NC. SR WITH ST DEPRESSION. HR IN 90, SBP IN THE 100-130S. BT HYPOACTIVE, NO BM THIS SHIFT. NO URINE OUPUT THIS SHIFT. PT IS A DIALYSIS PT-WAS DIALYZED YESTERDAY. FISTULA ON AFSHAN. 2 IVS-18G RAC AND PG IN AFSHAN. NS AT TKO, PROTONIX 10MLS/HR. PT CURRENTLY UP IN CHAIR
--- NOTE | 2019-05-25 07:30 | NUR ---
ASSUMED CARE OF PT AT 0700. REPORT FROM BECCA MEYERS. PT SITTING IN CHAIR AT BEDSIDE. WAKES c VERBAL STIMULI. DENIES PAIN AT THIS TIME. A&OX 4. ANSWERS QUESTIONS APPROPRIATELY. LUNGS COARSE THROUGHOUT. O2 SATS >93% ON RA. ABD DISTENDED, SOFT, NON TENDER. BT X 4. PT DENIES ABD PAIN. DENIES BLOODY STOOL TODAY. STATES LAST BM YESTERDAY. DENIES VOMITING. 2+ EDEMA TO LOWER LEGS. FISTULA LEFT ARM. POWERGLIDE TO RUE, INFUSING PROTONIX AT 10 MG/HR. WILL CONTINUE TO MONITOR.
--- NOTE | 2019-05-25 07:50 | NUR ---
DR BERNARD AT BEDSIDE. AWARE OF EKG CHANGES AND TROPONIN. WILL CONTINUE TO MONITOR AND PROVIDE SYMPTOMATIC SUPPORT. EDUCATES PT THAT CARDIAC INTERVENTIONS WILL NEED TO OCCUR 2-3 WEEKS POST D/C.
--- NOTE | 2019-05-25 09:02 | NUR ---
PT C/O LEFT SIDED CHEST PAIN. C/O INCREASING SOB. ATTEMPTED TO REPOSITION FOR COMFORT. DR. BRIDGES AWARE OF SYMPTOMS, EKG CHANGES AND TROPONIN. PLAN FOR SYMPTOMATIC CARE D/T GI BLEED. MEDICATED c FENTANYL 50 MCG IVP ORDERED. WILL CONTINUE TO MONITOR.
--- NOTE | 2019-05-25 12:15 | NUR ---
BEDBATH COMPLETE. PT c SCANT MAROON BM. 1 TEASPOON. PT STATES CP IMPROVED. C/O INTERMITTANT SOB. DANGLING LEGS IN BED. CALL LIGHT IN REACH. WILL CONTINUE TO MONITOR.
[2019-05-25 13:59] LABS: Hematocrit 31.7 % (37.0-53.0); Hemoglobin 9.7 g/dL (13.5-17.5); Mean Corpuscular HGB Conc 30.6 g/dL (31.5-36.5); Mean Corpuscular Volume 101 fL (80-100); Mean Platelet Volume 9.8 fL (9.1-12.4); NRBC ABSOLUTE 0.03 K/mm3 (0.00-0.02); NRBC Auto 0.2 /100 WBC (0.0-0.2); Platelet Count 95 K/mm3 (150-400); RDW Coefficient Variation 16.3 % (11.7-14.2); RDW Standard Deviation 55.1 fL (35.1-46.3); Red Blood Cell Count 3.13 M/mm3 (4.30-5.90); White Blood Cell Count 17.22 K/mm3 (4.00-11.30)
[2019-05-25 14:22] LABS: BAND PERCENT MAN 1 % (0-8); BASOPHILS PERCENT MAN 0 % (0-2); EOSINOPHILS PERCENT MAN 0 % (0-6); LYMPHOCYTES ABSOLUTE MAN 2.23 K/mm3 (0.84-5.20); LYMPHOCYTES PERCENT MAN 13 % (21-46); MONOCYTES ABSOLUTE MAN 0.68 K/mm3 (0.16-1.47); MONOCYTES PERCENT MAN 4 % (4-13); NEUTROPHILS ABSOLUTE MAN 14.29 K/mm3 (1.96-9.15); SEG NEUTROPHILS PERCENT MAN 82 % (41-73); TOTAL CELLS COUNTED 100
[2019-05-25 14:24] LABS: Albumin, Blood 1.7 g/dL (3.4-5.0); Albumin/Globulin Ratio 0.7 (0.8-1.8); Bilirubin, Total 0.6 mg/dL (0.1-1.0); Bun/Creatinine Ratio 6.2 (12.0-20.0); Calcium, Blood 6.7 mg/dL (8.5-10.1); Creatinine, Blood 6.66 mg/dL (0.60-1.20); Globulin, Blood 2.6 g/dL (2.2-4.0); Potassium, Blood 4.1 mmol/L (3.5-5.5); Total Protein, Blood 4.3 g/dL (6.4-8.2)
[2019-05-25 14:27] LABS: Troponin I 36.4 ng/mL (0.000-0.040)
--- NOTE | 2019-05-25 14:28 | NUR ---
RN CALLED TO ROOM BY RT WHO WAS AT BEDSIDE FOR BREATHING TX. DIALYSIS NURSE AT BEDSIDE, HAD NOT STARTED DIALYSIS. PT UNRESPONSIVE, AGONAL RESP, PULSES NOT PALPABLE, CODE CALLED AT 1334. CPR STARTED. PT MOANS c CPR, WAKES BRIEFLY AND RESPONSES TO QUESTIONS. OCCURS TWICE MORE. RT ASSISTING VENTILATIONS c BVM. DR BRIDGES AT BEDSIDE. ADDITIONAL STAFF AT BEDSIDE. SEE CODE SHEET. 1341 WIDE COMPLEX VTACH, DEFIBRILATION 200J, CONTINUE CPR, WIDE COMPLEX VTACH, DEFIBRILATION AT 200J. CONTINUE CPR, SEE FLOW SHEET FOR MEDS. ER MD LANGLEY TO INTUBATE AT 1349. POSITIVE COLOR CHANGE, BILATERAL BREATH SOUNDS. CONTINUE CPR AND CODE MEDS. PULSE CHECKS, FAINT FEMORAL PULSE BY DOPPLER FOR LESS THAN 30 SECS, CPR RESUMED MULTIPLE TIMES. DAUGHTER CONTACTED BY JORGE, SPIRITUAL CARE, DAUGHTER STATES TO STOP COMPRESSIONS. WIDE COMPLEX, FEMORAL PULSE BY DOPPLER ONLY. GIVEN VERSED AND FENTANYL FOR PAIN/COMFORT. TIME OF , 1415.
--- NOTE | 2019-05-25 15:06 | NUR ---
PATIENT AWAKE , ALERT AND CONVERSANT UPON ENTRY TO ROOM TO SET UP FOR DIALYSIS. JUST PRIOR TO PLACEMENT OF ACCESS NEEDLES, PATIENT WAS STARTED ON AN UPDRAFT TREATMENT TO MITIGATE C/O SOME SOB. SUDDENLY, PATIENT LAPSED INTO UNCONSCIOUSNESS AND CODE BLUE WAS CALLED. AFTER LENGTHY EFFORTS TO RESCUSITATE PATIENT AND RE-ESTABLISH VIABLE CARDIAC RYTHYM, AND PHONE CONTACT WITH FAMILY, RESUSCITATION WAS STOPPED AND PATIENT WAS PRONOUNCED. HEMODIALYSIS SET UP BUT NOT PROVIDED.
--- NOTE | 2019-05-25 17:38 | NUR ---
Spiritual Care note: Present throughout code. Stayed on phone with dtrSofie, who lives in [place]. Provided updates and gentle evp general counsel. Sofie allowed pt a natural, peaceful passing. She was tearful and receptive to emotional support. Prayer provided at bedside for pt.
== END 2019-05-25 14:16 | DRG 377 ==
LOC: ER 08:56 → MEDS 11:12 → ICUW 11:12 → MEDS 13:10 → PCU 16:19 → ICUW 16:42
PROVIDERS: Internal Medicine; Internal Medicine Cardiovascular Disease; Internal Medicine Gastroenterology; Internal Medicine Nephrology; ADMIT Hospitalist
PROC: 0DJD8ZZ Inspection of Lower Intestinal Tract, Via Natural or Artificial Opening Endoscopic (ICD-10-PCS; 2019-05-22)
PROC: 30233N1 Transfusion of Nonautologous Red Blood Cells into Peripheral Vein, Percutaneous Approach (ICD-10-PCS; 2019-05-22)
PROC: 0DJD8ZZ Inspection of Lower Intestinal Tract, Via Natural or Artificial Opening Endoscopic (ICD-10-PCS; principal; 2019-05-22 16:00)
PROC: 0W3P8ZZ Control Bleeding in Gastrointestinal Tract, Via Natural or Artificial Opening Endoscopic (ICD-10-PCS; 2019-05-24)
PROC: 5A1D70Z Performance of Urinary Filtration, Intermittent, Less than 6 Hours Per Day (ICD-10-PCS; 2019-05-24)
PROC: 0BH18EZ Insertion of Endotracheal Airway into Trachea, Via Natural or Artificial Opening Endoscopic (ICD-10-PCS; 2019-05-25)
PROC: 5A1935Z Respiratory Ventilation, Less than 24 Consecutive Hours (ICD-10-PCS; 2019-05-25)
DX: K92.2 Gastrointestinal hemorrhage, unspecified (principal); N18.6 End stage renal disease; I21.3 ST elevation (STEMI) myocardial infarction of unspecified site; I50.23 Acute on chronic systolic (congestive) heart failure; I42.8 Other cardiomyopathies; N25.81 Secondary hyperparathyroidism of renal origin; I13.0 Hypertensive heart and chronic kidney disease with heart failure and stage 1 through stage 4 chronic kidney disease, or unspecified chronic kidney disease; Z68.31 Body mass index [BMI] 31.0-31.9, adult; J44.9 Chronic obstructive pulmonary disease, unspecified; E78.5 Hyperlipidemia, unspecified; Z99.2 Dependence on renal dialysis; G43.909 Migraine, unspecified, not intractable, without status migrainosus; E66.9 Obesity, unspecified; E11.51 Type 2 diabetes mellitus with diabetic peripheral angiopathy without gangrene; E11.22 Type 2 diabetes mellitus with diabetic chronic kidney disease; E83.39 Other disorders of phosphorus metabolism; E88.09 Other disorders of plasma-protein metabolism, not elsewhere classified; E87.5 Hyperkalemia; E87.70 Fluid overload, unspecified; L60.0 Ingrowing nail; Z86.73 Personal history of transient ischemic attack (TIA), and cerebral infarction without residual deficits; D50.9 Iron deficiency anemia, unspecified; Z79.02 Long term (current) use of antithrombotics/antiplatelets; R57.8 Other shock
CPT/HCPCS: 31500; 31720; 36415; 36430; 74174; 80053; 80069; 82947; 83735; 84100; 84484; 85007; 85014; 85018; 85025; 85027; 85610; 86850; 86900; 86901; 86923; 92950; 93005; 93010; 94640; 96361; 96374; 96375; 99285-25; A9270; C1751; C8929; C9113; J0171; J0282; J0780; J1265; J2250; J2370; J2405; J2550; J2704; J3010; J7030; J7040; J7120; P9016; Q9957; Q9967